=== PATIENT | female | born 1965 | race Caucasian/White ===

== ENCOUNTER 2020-10-27 05:42 | Emergency (ER) | payer BC, OTHER ==
[~2020-10-27] VITALS: Ht 152.4 cm; Wt 72.1 kg
[~2020-10-27 05:42] MED LIST: ALBU90OI INH; ASPI81CH; ASPI81CH PO; ATOR10 PO; ATOR20 PO; BUME2 PO; CARB200; CARB200ER PO; CARBATROL 200 MG; CARBATROL PO; DIVA500ER; FURO20 PO; HYOS.125 SL; LISI5 PO; MECL25 PO; PRED20 PO; ROSU10TA PO; SULTRIDS PO; VITAMIN D31 ML; Zithromax250 MG PO; [UNRECOGNIZED DRUG - REMARK]
[2020-10-27] MEDS ORDERED: LISI5 PO (05:50)
[2020-10-27] MEDS ORDERED: ROSUVASTATIN CA20 MG PO (05:51)
== END 2020-10-27 07:25 | disposition home or self-care (01) ==
LOC: ER 05:42
DX: H10.9 Unspecified conjunctivitis (principal); H57.9 Unspecified disorder of eye and adnexa; I10 Essential (primary) hypertension; E78.5 Hyperlipidemia, unspecified; Z79.82 Long term (current) use of aspirin; Z79.899 Other long term (current) drug therapy
CPT/HCPCS: 99283; A9270

== ENCOUNTER 2020-12-28 06:10 | Day surgery (SDC) | payer BC, OTHER ==
[~2020-12-28] VITALS: Ht 152.4 cm; Wt 73.1 kg
[~2020-12-28 06:10] MED LIST changes: +ROSUVASTATIN CA20 MG PO
[2020-12-28] MEDS ORDERED: ASPIR 8181 M1 PO (06:52)
[2020-12-28] MEDS ORDERED: CARBAMAZEPINE PO (06:54)
[2020-12-28] MEDS ORDERED: Prinivil10 MG PO (06:54)
--- NOTE | 2020-12-28 08:02 | NUR ---
12/28/20 0802 Saranya Grissom STARTED BY ANESTHESIOLOGIST AT 0750
== END 2020-12-28 10:25 | disposition home or self-care (01) ==
LOC: ORSCSDS 06:10
PROVIDERS: Podiatrist Foot & Ankle Surgery
PROC: 0SGG04Z Fusion of Left Ankle Joint with Internal Fixation Device, Open Approach (ICD-10-PCS; principal; 2020-12-28 07:30)
DX: M19.072 Primary osteoarthritis, left ankle and foot (principal); I10 Essential (primary) hypertension; G40.909 Epilepsy, unspecified, not intractable, without status epilepticus; E78.5 Hyperlipidemia, unspecified; Z79.899 Other long term (current) drug therapy; Z79.82 Long term (current) use of aspirin
CPT/HCPCS: A9270; C1713; J0171; J0690; J0735; J1100; J1885; J2405; J2704; J2765; J2795; J3010; J7120

== ENCOUNTER 2022-12-13 19:21 | Emergency (ER) | payer BC, OTHER ==
[~2022-12-13] VITALS: Ht 152.4 cm; Wt 73.0 kg
[~2022-12-13 19:21] MED LIST changes: +ASPIR 8181 M1 PO; +CARBAMAZEPINE PO; +Prinivil10 MG PO
[2022-12-13 19:59] LABS: Source, Urine Clean Catch
[2022-12-13 20:05] LABS: Bilirubin, Urine Neg (Neg); Blood, Urine 3+ (Neg); Glucose Qualitative, Urine Neg (Neg); Ketones, Urine Neg (Neg); Leukocyte Esterase, Urine 2+ (Neg); Nitrite, Urine Neg (Neg); Protein, Urine Neg (Neg); Specific Gravity, Urine 1.015 (1.003-1.022); Urobilinogen, Urine NORM (Normal)
[2022-12-13 20:10] LABS: Appearance, Urine Clear (Clear); Color, Urine Yellow (P-Yellow)
[2022-12-13 20:11] LABS: BASOPHILS ABSOLUTE AUTO 0.04 K/mm3 (0.00-0.23); BASOPHILS PERCENT AUTO 0 % (0-2); EOSINOPHILS ABSOLUTE AUTO 0.21 K/mm3 (0.00-0.68); EOSINOPHILS PERCENT AUTO 2 % (0-6); Hematocrit 37.5 % (33.0-51.0); Hemoglobin 12.8 g/dL (11.5-16.0); IMMATURE GRAN ABSOLUTE AUTO 0.03 K/mm3 (0.00-0.10); IMMATURE GRAN PERCENT AUTO 0 % (0-1); LYMPHOCYTES ABSOLUTE AUTO 2.45 K/mm3 (0.84-5.20); LYMPHOCYTES PERCENT AUTO 27 % (21-46); MONOCYTES PERCENT AUTO 9 % (4-13); Mean Corpuscular HGB 31.4 pg (26.0-34.0); Mean Corpuscular HGB Conc 34.1 g/dL (31.5-36.5); Mean Corpuscular Volume 92 fL (80-100); Mean Platelet Volume 9.7 fL (9.1-12.4); NEUTROPHILS ABSOLUTE AUTO 5.46 K/mm3 (1.96-9.15); NEUTROPHILS PERCENT AUTO 61 % (41-73); Platelet Count 284 K/mm3 (150-400); RDW Coefficient Variation 12.9 % (11.7-14.2); RDW Standard Deviation 43.2 fL (35.1-46.3); Red Blood Cell Count 4.08 M/mm3 (3.80-5.20); White Blood Cell Count 8.99 K/mm3 (4.00-11.30)
[2022-12-13 20:23] LABS: Bacteria Mod /hpf; Red Blood Cells, Urine 0-2 /hpf (0-2); Squamous Epithelial Cells Few /hpf (Few)
[2022-12-13 20:28] LABS: Albumin, Blood 4.1 g/dL (3.4-5.0); Albumin/Globulin Ratio 1.5 (0.8-1.8); Bilirubin, Total 0.1 mg/dL (0.1-1.0); Bun/Creatinine Ratio 26.4 (12.0-20.0); Creatinine, Blood 0.87 mg/dL (0.40-1.00); Globulin, Blood 2.7 g/dL (2.2-4.0); Potassium, Blood 3.7 mmol/L (3.5-5.5); Total Protein, Blood 6.8 g/dL (6.4-8.2)
== END 2022-12-13 22:33 | disposition home or self-care (01) ==
LOC: ER 19:21
PROVIDERS: Student in an Organized Health Care Education/Training Program
DX: M54.50 Low back pain, unspecified (principal); Q85.00 Neurofibromatosis, unspecified; R82.81 Pyuria; D72.829 Elevated white blood cell count, unspecified; I10 Essential (primary) hypertension; E78.5 Hyperlipidemia, unspecified; Z88.8 Allergy status to other drugs, medicaments and biological substances; Z88.6 Allergy status to analgesic agent; Z79.899 Other long term (current) drug therapy; Z79.82 Long term (current) use of aspirin
CPT/HCPCS: 36415; 74177; 80053; 81001; 85025; 87077; 87086; 87186; 99284-25; A9270; Q9967

== ENCOUNTER → 2023-06-18 | Outpatient (CLI) | payer BC, OTHER | END | disposition home or self-care (01) | LOC: LAB 14:05 → LAB SHORT 14:05 | DX: R30.0 Dysuria (principal) | CPT/HCPCS: 87077; 87086; 87186 ==

== ENCOUNTER → 2025-01-23 | Outpatient (CLI) | payer OTHER, BC | LOC: LAB 09:40 → LAB SHORT 09:40 | DX: N39.0 Urinary tract infection, site not specified (principal) | CPT/HCPCS: 87086 ==